=== PATIENT | female | born 1990 | race Caucasian/White ===

== ENCOUNTER → 2023-07-20 | Outpatient (CLI) | payer OTHER | LOC: M WUC 11:35 | PROVIDERS: ATTEND Student in an Organized Health Care Education/Training Program | DX: M25.512 Pain in left shoulder (principal) ==

== ENCOUNTER 2024-10-25 10:25 | Outpatient (CLI) | payer OTHER ==
[~2024-10-25] VITALS: Ht 165.1 cm; Wt 134.0 kg
[~2024-10-25 10:25] MED LIST: ALBUTEROL SULFATE 2.5MG/0.5ML INH CONCENTRATE NEB SOLN INH PRN; EPINEPHrine INJ 1 MG/ML 1ML AMP IM PRN; diphenhydrAMINE 50MG/ML VIAL IV PRN; methylPREDNISolone 125MG 2ML VIAL IV PRN
[2024-10-25 12:00] VITALS: BP 139/75; O2SAT 98
[2024-10-25] MEDS: IRON SUCROSE 100 MG, IRON SUCROSE COMPLEX 200 MG in NS 250 ML IV ONE (12:49)
[2024-10-25 14:45] VITALS: BP 117/65; O2SAT 97
== END 2024-10-25 14:45 | disposition home or self-care (01) ==
LOC: M INFU 10:25
PROVIDERS: ATTEND Family Medicine
DX: D64.9 Anemia, unspecified (principal)
CPT/HCPCS: 96365; 96366; J1756

== ENCOUNTER 2024-11-01 10:50 | Outpatient (CLI) | payer OTHER ==
[~2024-11-01] VITALS: Ht 165.1 cm; Wt 135.0 kg
[2024-11-01 10:55] VITALS: BP 110/61; O2SAT 98
[2024-11-01] MEDS: IRON SUCROSE 100 MG, IRON SUCROSE COMPLEX 200 MG in NS 250 ML IV ONE (11:35)
[2024-11-01 13:31] VITALS: BP 131/80; O2SAT 96
== END 2024-11-01 13:35 | disposition home or self-care (01) ==
LOC: M INFU 10:50
PROVIDERS: ATTEND Family Medicine
DX: D64.9 Anemia, unspecified (principal)
CPT/HCPCS: 96365; 96366; J1756